=== PATIENT | female | born 1960 | race Caucasian/White ===

== ENCOUNTER → 2020-05-16 17:43 | Outpatient (CLI) | payer OTHER, SELFPAY ==
--- NOTE | ~2020-05-16 | DEXA_ITS ---
Bone Density Report Name: Constance De Dios Age: 60 Sex: Female Ethnicity: White Date of : 1960 Indication: postmenopausal; screening for osteoporosis; parental hip fracture; asthma or emphysema; hysterectomy; Referring Provider: Piero Anaya Study: Bone densitometry was performed. Exam Date: May 16, 2020 Accession number: [id number] Bone Density: Region BMD T-score Z-score Classification AP Spine (L1-L4) 1.280 2.1 3.5 Normal Femoral Neck (Left) 0.835 -0.1 1.2 Normal Total Hip (Left) 1.077 1.1 2.1 Normal Femoral Neck (Right) 0.858 0.1 1.4 Normal Total Hip (Right) 1.098 1.3 2.2 Normal Total Hip Mean 1.088 1.2 2.2 Normal World Health Organization criteria for BMD impression classify patients as: Normal (T-score at or above -1.0), Osteopenia (T-score between -1.0 and -2.5), or Osteoporosis (T-score at or below -2.5). 10-year Fracture Risk: FRAX not reported because: All T-scores for Spine Total, Hip Total, Femoral Neck at or above -1.0 Clinical Information Provided by Patient: Parent has had a hip fracture Has the following medical conditions: Asthma or Emphysema, Hysterectomy Patient maximum height was 62.0 Menopause Age: 47 Drinks caffeinated beverages Onset of menses at age 14 Number of children 0 Impression: The patient has normal bone mass. The patient has risk factors, including: parental hip fracture. Discussion: BONE DENSITY IS ABOVE THE MINIMUM DESIRABLE LEVEL AT ALL SKELETAL SITES TESTED. This patient?s bone mineral density is above the minimum desirable level (T-score -1.0 or better) at all sites measured. The patient should follow a healthful lifestyle (good nutrition with adequate calcium and vitamin D, and appropriate weight-bearing exercise). Follow-Up: Consider repeating this study in 5 years or sooner if there is some new clinical indication. Reported by: LISANDRO on 05/16/2020 6:16:00 PM. Reviewed, dictated and finalized at location [facility]
== END ==
PROVIDERS: PCP Family Medicine; Visit Provider Family Medicine
DX: Z78.0 Asymptomatic menopausal state (principal)
CPT/HCPCS: 77080

== ENCOUNTER 2021-03-06 02:38 | Day surgery (SDC) | payer OTHER, SELFPAY ==
[2021-02-25 08:52] VITALS: BMI 31.0
--- NOTE | 2021-03-05 12:24 | PM.HPGS ---
History of Present Illness History of Present Illness Consent: Risks, benefits, and alternatives have been discussed and questions answered. Patient agrees to proceed with procedure. Chief complaint: hx of rectal polyp Narrative: Constance De Dios is a 61 year old female referred for colon cancer screening. She had 2 polyps removed about 8 years ago Review of Systems Review of Systems: All systems reviewed & are unremarkable except as noted in HPI and below PMFSH Past Medical History Medical History Asthma Environmental allergies Osteoarthritis Surgical History Surgical History History of partial hysterectomy (~2003) Family History Family History Father Family history of diabetes mellitus in first degree relative Family history of coronary artery disease Sibling Family history of lymphoma Cancer Mother , 82 COPD (chronic obstructive pulmonary disease) Cancer Grandparent Pneumonia Cancer Other Diabetes mellitus Family history of arthritis Family history of malignant neoplasm Social History Social History Years smoked: 10 Smoking status: Former smoker Smoking end date: 05/02/02 Alcohol intake: current Drinks per week: 6 Substance use: current Substance use type: marijuana Other substance usage details: edibles and inhales Last use: 02/24/21 Living arrangements: with family Spiritual care concerns: No Meds Home Medications and Allergies Home Medications Medication Instructions Recorded Confirmed Type acetaminophen 500 mg tablet 500 mg PO Q6H PRN 03/18/20 03/06/21 History albuterol sulfate 90 mcg/actuation 2 inh INHALATION Q4H PRN #8.5 g 03/18/20 03/06/21 Rx aerosol inhaler Multi-Collagen Protein 1 tsp PO DAILY 02/25/21 03/06/21 History cholecalciferol (vitamin D3) 50 mcg PO DAILY 02/25/21 03/06/21 History ibuprofen 200 mg PO Q6H PRN 02/25/21 03/06/21 History Allergies Allergy/AdvReac Type Severity Reaction Status Date / Time tetanus toxoid, adsorbed Allergy Unknown RED Verified 03/06/21 06:19 Tetanus Vaccines and Toxoid Allergy Unknown Redness of Verified 03/06/21 06:19 Skin Exam Const: General: alert Orientation/consciousness: patient oriented x3 Resp: Auscultation: clear to auscultation bilaterally Cardio: Rhythm: regular rhythm GI: GI Palp: Yes Soft to palpation and No Tenderness to palpation present (GI) Neuro: General: patient oriented x3 Assessment and Plan Assessment and plan (1) Colon cancer screening: Code(s): Z12.11 - Encounter for screening for malignant neoplasm of colon Status: Acute Assessment and Plan: Colonoscopy with possible biopsy or polypectomy or cautery or injection of substances.
[2021-03-06 06:26] VITALS: BP 147/68; PULSE 63; RESP 18; TEMP 36.3; O2SAT 97
[2021-03-06] MEDS: LACTATED RINGERS 1,000 ML 150 ML IV CONT (06:35)
--- NOTE | 2021-03-06 07:11 | WPDANESEPPF ---
Anes - Initial Pre Proc Eval Procedure: Operation Date: 03/06/21 07:30 Proposed Procedures p Screening Colonoscopy - Anurag Alva MD Date/Time: 03/06/21 07:11 Surgeon: Anurag Alva MD Pre Op Diagnosis: hx of rectal polyp Patient Data Age: 61 Gender: F Height: 1.57 m Weight: 73.8 kg Last Vital Signs Temp 36.3 C L 03/06/21 06:26 Pulse 63 03/06/21 06:26 Resp 18 03/06/21 06:26 BP 147/68 H 03/06/21 06:26 Pulse Ox 97 03/06/21 06:26 Allergies Allergy/AdvReac Type Severity Reaction Status Date / Time tetanus toxoid, adsorbed Allergy Unknown RED Verified 03/06/21 06:19 Tetanus Vaccines and Toxoid Allergy Unknown Redness of Verified 03/06/21 06:19 Skin Home Medications Medication Instructions Recorded Confirmed Type acetaminophen 500 mg tablet 500 mg PO Q6H PRN 03/18/20 03/06/21 History albuterol sulfate 90 mcg/actuation 2 inh INHALATION Q4H PRN #8.5 g 03/18/20 03/06/21 Rx aerosol inhaler Multi-Collagen Protein 1 tsp PO DAILY 02/25/21 03/06/21 History cholecalciferol (vitamin D3) 50 mcg PO DAILY 02/25/21 03/06/21 History ibuprofen 200 mg PO Q6H PRN 02/25/21 03/06/21 History Patient hx anesthesia problems: other (slow to awaken) Family hx anesthesia problems: other (slow to awaken) Results Review: All pre-operative results and documents have been reviewed as part of the pre-operative evaluation. [facility] Past Medical History Medical History Asthma Environmental allergies Osteoarthritis Surgical History Surgical History History of partial hysterectomy (~2003) Family History Family History Father Family history of diabetes mellitus in first degree relative Family history of coronary artery disease Sibling Family history of lymphoma Cancer Mother , 82 COPD (chronic obstructive pulmonary disease) Cancer Grandparent Pneumonia Cancer Other Diabetes mellitus Family history of arthritis Family history of malignant neoplasm Social History Social History Years smoked: 10 Smoking status: Former smoker Smoking end date: 05/02/02 Alcohol intake: current Drinks per week: 6 Substance use: current Substance use type: marijuana Other substance usage details: edibles and inhales Last use: 02/24/21 Living arrangements: with family Spiritual care concerns: No Anes - Eval Final PreProcedure Day of Procedure 03/06/21 07:11 Patient weight: obese Heart: regular rate and rhythm Lungs: decreased breath sounds Airway: Mallampati scale class II Neurological: alert and oriented Last oral intake: >/= 8 hours ASA classification: III Emergent: no Anesthetic plan: proceed Anesthesia type and monitoring: general GIVS and standard monitoring Results Review: All pre-operative results and documents have been reviewed as part of the pre-operative evaluation. Informed Consent: The patient's anesthetic plan and its attendant risks and benefits were discussed with the patient/family/POA. Questions were solicited and answers provided to the satisfaction of the patient/family/POA.
[2021-03-06 07:50] VITALS: BP 103/60; PULSE 58; RESP 21; O2SAT 97
[2021-03-06 08:00] VITALS: BP 109/57; PULSE 53; RESP 23; O2SAT 98
[2021-03-06 08:10] VITALS: BP 120/63; PULSE 48; RESP 18; O2SAT 99
== END 2021-03-06 08:19 | disposition home or self-care (01) ==
PROVIDERS: PCP Family Medicine; Visit Provider Internal Medicine Gastroenterology
PROC: 0DJD8ZZ Inspection of Lower Intestinal Tract, Via Natural or Artificial Opening Endoscopic (ICD-10-PCS; CPT 45378; principal; 2021-03-06 07:30)
DX: Z12.11 Encounter for screening for malignant neoplasm of colon (principal); Z86.010 Personal history of colon polyps; Z79.51 Long term (current) use of inhaled steroids; J45.909 Unspecified asthma, uncomplicated; M19.90 Unspecified osteoarthritis, unspecified site; Z87.891 Personal history of nicotine dependence; F12.90 Cannabis use, unspecified, uncomplicated; E66.9 Obesity, unspecified; Z68.29 Body mass index [BMI] 29.0-29.9, adult
CPT/HCPCS: 45378; J2704; J7120